=== PATIENT | female | born 1995 | race Caucasian/White ===

== ENCOUNTER → 2016-10-30 | Outpatient (CLI) | payer OTHER ==
[~2016-10-30] MED LIST: CALC500C3; PEDI1CHW82
[2016-10-30 18:54] LABS: URINE APPEARANCE CLEAR (CLEAR); URINE BILIRUBIN NEG (NEG); URINE COLOR YELLOW; URINE EPITHELIAL CELL AUTO >30 /lpf (0-5); URINE NITRITE NEG (NEG); URINE SPECIFIC GRAVITY 1.002 (1.000-1.030); UROBILINOGEN NEG (NEG)
[2016-10-30 18:59] LABS: MANUAL MICROSCOPIC REQUIRED? NO; REVIEW REQ? NO
== END | disposition home or self-care (01) ==
LOC: C.LABSPEC 17:53
PROVIDERS: ATTEND Obstetrics & Gynecology
DX: Z34.03 Encounter for supervision of normal first pregnancy, third trimester (principal)

== ENCOUNTER → 2016-10-30 | Outpatient (CLI) | payer OTHER ==
[2016-10-30 17:25] LABS: GTGD 50 Grams
== END | disposition home or self-care (01) ==
LOC: C.LAB1850 14:27
PROVIDERS: ATTEND Obstetrics & Gynecology
DX: Z34.03 Encounter for supervision of normal first pregnancy, third trimester (principal)

== ENCOUNTER → 2016-12-24 | Outpatient (CLI) | payer OTHER | END | disposition home or self-care (01) | LOC: C.LABSPEC 13:50 | PROVIDERS: ATTEND Obstetrics & Gynecology | DX: Z34.03 Encounter for supervision of normal first pregnancy, third trimester (principal) ==

== ENCOUNTER 2017-01-04 17:37 | Inpatient (IN) | payer OTHER ==
[~2017-01-04] VITALS: Ht 165.1 cm; Wt 83.2 kg
[2017-01-04] MEDS ORDERED: LACTATED RINGER'S 1000ML 1,000 ML IV SCH (18:11)
[2017-01-04] MEDS ORDERED: LACTATED RINGER'S 1000ML 1,000 ML IV PRN (18:11)
[2017-01-04] MEDS ORDERED: PATIENT'S ALLERGY INFO NEEDS ENTERED SCH (18:15)
[2017-01-04 18:32] LABS: HEMATOCRIT 33.9 % (37-47); MEAN CELL VOLUME 86.9 fL (80-100); MEAN CORPUSCULAR HEMOGLOBIN 28.5 pg (25-34); MEAN CORPUSCULAR HGB CONC 32.7 g/dl (32-36); MEAN PLATELET VOLUME 11.3 fL (7.4-10.4); PLATELET COUNT 188 K/uL (130-400); WHITE BLOOD COUNT 11.28 K/uL (4.8-10.8)
[2017-01-04] MEDS ORDERED: CALC500C3 (18:49)
[2017-01-04] MEDS ORDERED: PEDI1CHW82 (18:49)
[2017-01-04 18:54] VITALS: Ht 165.1 cm; Wt 83.2 kg
[2017-01-04] MEDS ORDERED: BUTORPHANOL TARTRATE 1 MG/ML VIAL IV ONE (20:30)
[2017-01-04] MEDS ORDERED: OXYTOCIN 30 UNITS/500ML NSS IV ONE (22:10)
[2017-01-04] MEDS ORDERED: LANOLIN OINT EXT PRN ×2 (22:45)
[2017-01-04] MEDS ORDERED: BENZOCAINE 20% AER SPR 82.5 GM CAN EXT PRN (22:45)
[2017-01-04] MEDS ORDERED: OXYTOCIN 30 UNITS/500ML NSS IV PRN (22:45)
[2017-01-04] MEDS ORDERED: ACETAMINOPHEN/CODEINE 300/30MG TAB PO PRN ×2 (22:45)
[2017-01-04] MEDS ORDERED: OXYCODONE/ACETAMINOPHEN 5-325 TAB PO PRN (22:45)
[2017-01-04] MEDS ORDERED: ACETAMINOPHEN 325 MG TAB PO PRN (22:45)
[2017-01-04] MEDS ORDERED: HYDROCORTISONE ACETATE 25 MG SUPP PR PRN (22:45)
[2017-01-04] MEDS ORDERED: SUPERCREAM 0.870 % 15GM JAR EXT PRN (22:45)
[2017-01-04] MEDS ORDERED: DIPHTHERIA/TETANUS/PERTUSSIS 0.5 ML SYR/VIAL IM. ONE (22:45)
--- NOTE | 2017-01-04 23:52 | DELIVERY SUMMARY ---
DATE OF OPERATION: 01/04/2017 PREOPERATIVE DIAGNOSES: 1. Intrauterine at 37-4/7 weeks. 2. Active labor. POSTOPERATIVE DIAGNOSES: Same. PROCEDURES: 1. Stadol IV anesthesia. 2. Normal spontaneous vaginal delivery. 3. Bilateral labial lacerations with repair. SURGEON: Dr. Valdes. ANESTHESIA: Stadol IV and local infiltration of lidocaine to the labia. ESTIMATED BLOOD LOSS: 350 mL. PROCEDURE: The patient to presents to labor and delivery in active labor. She was admitted and underwent spontaneous rupture of membranes for clear fluid. She progressed spontaneously to 7-8 cm dilated, she got one dose of 1 mg of IV Stadol. She then progressed to complete, complete and +2 station. She pushed effectively to deliver a viable male infant in CATHIE presentation. There was no nuchal cord. The nose and mouth were bulb suctioned and the rest of the infant was then delivered without difficulty. The nose and mouth were again bulb suctioned. The infant was placed on the maternal abdomen for drying and attention. The cord was clamped and cut. Cord blood and segment were obtained. Placenta was delivered spontaneously, intact with a 3-vessel cord. Cervix, sulci and rectum were examined as well as the perineum and found to be intact. Bilateral labial lacerations were repaired under local infiltration of lidocaine with several interrupted stitches of 4-0 Vicryl. Apgars 8 and 9. Mother and baby doing well at the end of the delivery. I attest to the content of the Intraoperative Record and any orders documented therein. Any exceptions are noted below. MALIA
[2017-01-05] VITALS (7 sets, daily range): BP systolic 106–132; BP diastolic 65–78; PULSE 70–78; TEMP 36.4–36.9; O2SAT 97–98
[2017-01-05] MEDS: IBUPROFEN 600 MG TAB PO PRN ×2 (00:05→13:36)
[2017-01-05 06:55] LABS: HEMATOCRIT 30.4 % (37-47)
[2017-01-05] MEDS: PRENATAL VITAMIN TAB PO SCH (07:56)
[2017-01-05] MEDS: DOCUSATE SODIUM 100 MG CAP PO SCH ×2 (07:56→19:32)
--- NOTE | 2017-01-05 08:36 | Progress Note ---
Subjective Jan 05, 2017. Subjective conversation w/ patient, physical exam Ambulation: ambulating normally Voiding: no voiding problems Passing Gas: Yes Diet Tolerance: Regular Diet Lochia: Moderate Feeding Type: Bottle Feeding Pain: denies pain Comment: Patient was seen at the bedside. No acute event overnight. Review of Systems Constitutional: No fever Respiratory: No cough, No shortness of breath Cardiac: No chest pain, No edema Breast: No breast lump Abdomen: No nausea, No pain, No vomiting Female : No dysuria Denies headache Objective Vital Signs Date Time Temp Pulse Resp B/P Pulse Ox O2 Delivery O2 Flow Rate FiO2 01/05/17 04:10 36.9 76 18 121/76 Room Air 01/05/17 00:15 36.4 78 18 132/78 Room Air 01/05/17 00:15 Room Air Physical Exam General Appearance: WELL-APPEARING, WD/WN Respiratory/Chest: chest non-tender, lungs clear, normal breath sounds Cardiovascular: regular rate, rhythm, no edema Abdomen: normal bowel sounds, non tender, soft Fundus: Firm, Relation to Umbilicus (2cm beloe) Extremities: non-tender, no pedal edema, no calf tenderness Laboratory Results Last 24 Hours Test 01/04/17 18:24 01/05/17 06:36 White Blood Count 11.28 K/uL Red Blood Count 3.90 M/uL Hemoglobin 11.1 g/dL 10.1 g/dL Hematocrit 33.9 % 30.4 % Mean Corpuscular Volume 86.9 fL Mean Corpuscular Hemoglobin 28.5 pg Mean Corpuscular Hemoglobin Concent 32.7 g/dl RDW Standard Deviation 44.7 fL RDW Coefficient of Variation 14.1 % Platelet Count 188 K/uL Mean Platelet Volume 11.3 fL Medications Current Inpatient Medications Medications (Trade) Dose Ordered Sig/Teresita Route Start Time Stop Time Status Last Admin Dose Admin Oxytocin (Pitocin IV) 30 units UD PRN IV 01/04/17 22:45 02/03/17 22:44 Benzocaine (Dermoplast Aero Spr) 1 appln PRN PRN EXT 01/04/17 22:45 02/03/17 22:44 01/05/17 00:05 1 APPLN Cocaine HCl (Supercream 0.870% Cr) BID PRN EXT 01/04/17 22:45 01/18/17 22:44 Hydrocortisone Acetate (Anusol Hc Supp) 25 mg BID PRN VT 01/04/17 22:45 02/03/17 22:44 Lanolin (Lanolin Oint) PRN PRN EXT 01/04/17 22:45 02/03/17 22:44 Prenat Multivit/ [place]/Iron/Folic Ac ( Vitamin Tab) 1 tab DAILY PO 01/05/17 08:00 02/04/17 07:59 Ibuprofen (Motrin Tab) 600 mg Q4H PRN PO 01/04/17 22:45 02/03/17 22:44 01/05/17 00:05 600 MG Acetaminophen (Tylenol Tab) 650 mg Q6H PRN PO 01/04/17 22:45 02/03/17 22:44 Acetaminophen/ Codeine Phosphate (Tylenol w/ Codeine #3 Tab) 1 tab Q4H PRN PO 01/04/17 22:45 02/03/17 22:44 Acetaminophen/ Codeine Phosphate (Tylenol w/ Codeine #3 Tab) 2 tab Q4H PRN PO 01/04/17 22:45 02/03/17 22:44 Docusate Sodium (coLACE CAP) 100 mg BID PO 01/05/17 08:00 02/04/17 07:59 01/05/17 07:56 100 MG Assessment and Plan Post- Day#: 1 Continue Routine Care: A/P: This is a 21 y/o female, , s/p normal vaginal delivery. She is ambulating and clinically stable. Plan: - Vitals signs are reviewed and WNL (Tmax 36.9 ) - Last Hgb is 10.1 - Blood type O+, GBS neg, Rubella Immune - Routine care - Encourage ambulation, monitor and control pain with medication as needed , continue with regular diet as tolerated and monitor lochia - Stool softeners and sitz bath recommended Resident Physician Supervision Note: I interviewed and examined the patient. Discussed with Dr. Weeks and agree with findings and plan as documented in the note. Any exceptions or clarifications are listed here: Doing well. Routine care. Documented By: Salud Valdes
--- NOTE | 2017-01-05 20:10 | Discharge Instructions ---
Discharge Instructions Date of Service Jan 05, 2017. Admission Reason for Admission: Check Labor, Decrease Movement Discharge Discharge Diagnosis / Problem: s/p vaginal delivery Discharge Goals Goal(s): Routine recovery after delivery Medications Continue Dispensed Medications: supercream, dermaplast, tucks, lansinoh Activity Recommendations Activity Limitations: per Instructions/Follow-up section . Instructions / Follow-Up Instructions / Follow-Up ACTIVITY RECOMMENDATIONS: * Gradual return to full activity over the next 2-3 weeks. * No lifting - nothing heavier than baby over the next 2-3 weeks. * Do not engage in vigorous exercise, sexual activity or sports until cleared by your physician. * Do not drive or operate any motorized equipment until cleared by your physician. * You may shower/bathe daily. MEDICATIONS: For discomfort or pain, you may use Acetaminophen (Tylenol), Ibuprofen (Advil), or Naproxen (Aleve) following the package directions. For constipation you may use Colace following the package directions. BREAST CARE: If you are not breast feeding: * Wear a supportive bra 24 hours a day for one to two weeks. * Avoid stimulating your breasts and nipples as much as possible during the first few weeks after delivery. * When taking a shower, have the warm water hit your back, not breasts. * When your breasts feel full, apply ice packs. Usually three to four times a day helps ease the discomfort. * Take a mild pain medication (Tylenol / Motrin) when you are uncomfortable. If breast feeding: * Use breast milk to lubricate nipples. Lansinoh cream may be used for sore nipples. You do not need to remove cream prior to breast feeding. If using a different brand of cream, check the label for directions regarding removal of cream prior to nursing. * Wear a supportive bra. * If having problems with breasts or breast feeding, call a water resource consultant or your health care provider. EPISIOTOMY CARE: After delivery, if you have an episiotomy (stitches), the following steps will ease discomfort and aid healing. * For the first 24 hours after delivery, place ice packs next to your episiotomy to help reduce swelling. * After the first 24 hour-period, sitz baths, either portable or in the tub, are suggested. A shower with a shower arm sprayed over the episiotomy may be comforting. * Sugar care should be done after each voiding and bowel movement. Squirt warm water from a plastic bottle over the perineum (region of the body between the anus and urinary opening) and pat dry. * Use Dermoplast to ease discomfort. Shake container. [place] directly over the episiotomy. Place a Tucks on a clean sanitary pad next to your episiotomy. SPECIAL CARE INSTRUCTIONS: When you are discharged from the hospital, it is important for you to follow the instructions listed below: * During the first week at home, you should be able to care for yourself and your baby. In addition, the usual light household activities are encouraged. * Limit your activities to the way you feel. Do not try to clean the house or move furniture. Be sensible. * If you actively engage in sports and have done so up until the time of your delivery, you may resume these activities as soon as you feel able. This may take up to one month or even longer. Use good judgment. * Continue to take your vitamins for at least six weeks after the of your baby. * Your diet need not be limited unless you were on a special diet before your delivery. Breast-feeding mothers need around 2500 calories per day and at least 64-80 ounces of fluid per day (8 to 10 glasses). * You should eat foods from the four major food groups. Crash diets or fad diets are to be avoided. Eating lean meats, fresh fruits and vegetables, low-fat dairy products, high fiber foods and a regular exercise program, will help you get back to your pre- weight without putting your health at risk. * Constipation is sometimes a problem after delivery. Take a mild laxative as needed. If breast feeding, Milk of Magnesia is acceptable to use. You may use a suppository or Fleets enema if no episiotomy. * A daily shower or tub bath is suggested. Be sure to thoroughly and gently dry the perineum. * A bloody vaginal discharge will usually continue until around four weeks post . A small amount of bleeding may continue for as long as six weeks. Vaginal discharge changes from the bright red bleeding after delivery to pink then brownish and finally yellowish-pink before becoming white and disappearing. * Bleeding may increase with activity. Your first period may come in 4-8 weeks. If you are breast feeding, your period may be delayed even longer. * Meservey (sex) can begin whenever both you and your partner feel comfortable and do not have any form of genital infection. It is recommended that you wait at least six weeks for internal and external healing to occur. If you have questions, please talk to your health care practitioner. A condom should be used to prevent infection and . * Foreplay, gentle intercourse and lubrication is very important the first several times to prevent pain. A water-based lubricant such as K-Y jelly or Astroglide may be used. * If you have RH negative blood and your baby is RH positive, you will receive RHOGAM by injection prior to discharge. The nurse will give you a card to keep with you that has the date and place that you received RHOGAM after delivery. * During your care, you had a Rubella screen done to check for the presence of rubella antibodies in your blood. If your test was negative, you will receive a Rubella vaccine prior to discharge. This vaccine may cause a fever, soreness at the injection site and flu-like symptoms. If these symptoms persist, notify your health care practitioner. is not advised for one month after a Rubella vaccine. * Verbalizes understanding of car seat law as reviewed with patient nursing. * Car Seat hand-out given and reviewed with patient by nursing. * Shaken baby information reviewed with patient by nursing. Call you doctor if: * Heavy bleeding (saturating several pads an hour) or passing clots the size of your fist. * A fever >101 degrees F (38.3 degrees C) on two occasions four hours apart and /or chills. * Unusual pain in the pelvic or vaginal areas. * "Baby Blues" lasting longer than two weeks. If you have any questions or concerns, call your health care practitioner at . FOLLOW UP VISIT: * Please call the office at to schedule a 6 week examination. It is important you keep this appointment. It is important for you to make arrangements for either yearly or twice yearly check-ups thereafter. Current Hospital Diet Patient's current hospital diet: Regular OB Diet Discharge Diet Recommended Diet: Regular Diet Pending Studies Studies pending at discharge: no Medical Emergencies . Who to Call and When: Medical Emergencies: If at any time you feel your situation is an emergency, please call 911 immediately. . Non-Emergent Contact Non-Emergency issues call your: Regulator Assembler . . "Provider Documentation" section prepared by Salud Valdes. . VTE Core Measure Inpt VTE Proph given/why not?: Treatment not indicated
[2017-01-06 07:20] VITALS: BP 109/71; PULSE 69; TEMP 36.7
--- NOTE | 2017-01-06 07:57 | Progress Note ---
Subjective Jan 06, 2017. Subjective conversation w/ patient, physical exam, lab review Ambulation: ambulating normally Voiding: no voiding problems Passing Gas: Yes Diet Tolerance: Regular Diet Lochia: Small Feeding Type: Breast Feeding Pain: controlled with oral pain meds Objective Vital Signs Date Time Temp Pulse Resp B/P Pulse Ox O2 Delivery O2 Flow Rate FiO2 01/05/17 23:30 Room Air 01/05/17 23:30 36.7 74 18 107/65 Room Air 01/05/17 19:35 36.4 70 18 108/72 Room Air 01/05/17 17:05 36.6 73 18 114/75 98 Room Air 01/05/17 17:05 98 Room Air 01/05/17 11:35 36.8 76 18 106/68 Room Air Physical Exam General Appearance: WELL-APPEARING, WD/WN, NO APPARENT DISTRESS Respiratory/Chest: lungs clear, normal breath sounds Cardiovascular: regular rate, rhythm Abdomen: normal bowel sounds, non tender, soft Fundus: Firm, Non-Tender, Relation to Umbilicus (1 below u) Extremities: non-tender, normal inspection Assessment and Plan Post- Day#: 2 Continue Routine Care: Doing well. Plan d/c. Instructions given.
[2017-01-06] MEDS: PRENATAL VITAMIN TAB PO SCH (08:00)
[2017-01-06] MEDS: DOCUSATE SODIUM 100 MG CAP PO SCH (08:39)
[2017-01-06 11:30] VITALS: BP_DIAS 71; PULSE 69; TEMP 36.7
== END 2017-01-06 12:09 | disposition home or self-care (01) | DRG 775 ==
LOC: C.OPB 17:37 → C.LD 17:37 → C.OPB 18:13 → C.LD 18:13 → C.OBG 01-05 00:03
PROVIDERS: ADMIT Obstetrics & Gynecology; ATTEND Obstetrics & Gynecology
PROC: 0UQMXZZ Repair Vulva, External Approach (ICD-10-PCS; principal; 2017-01-04)
PROC: 10E0XZZ Delivery of Products of Conception, External Approach (ICD-10-PCS; principal; 2017-01-04)
DX: O70.0 First degree perineal laceration during delivery (principal); Z37.0 Single live birth; Z3A.37 37 weeks gestation of pregnancy

== ENCOUNTER 2022-04-24 06:45 | Inpatient (IN) ==
[2022-04-24] MEDS ORDERED: LACTATED RINGER'S 1,000 ML IV PRN (07:13)
[2022-04-24] MEDS ORDERED: OXYTOCIN 30 UNITS/500 ML BAG IV PRN ×2 (07:13→09:16)
--- NOTE | 2022-04-24 07:58 | History & Physical Report ---
Date of Service April 24, 2022 Assessment & Plan (1) Encounter for supervision of normal in multigravida, antepartum: Plan: 26 y/o presents in active labor VSS Fetus cat 1 Labor - will AROM as pt does not want epidural, too far along for stadol GBS neg Admission and Anticipated Discharge Date Admission Date: April 24, 2022 History of Present Illness Chief Complaint: Labor Primary Care Provider: NO PCP 26 y/o at 40 1/7 wga presents in labor. Contractions started at 5AM. +FM; denies LOF, VB PNI: Scoliosis G1 at 37 wks 2017 G2 current Allergies Allergy/AdvReac Type Severity Reaction Status Date / Time No Known Allergies Allergy Verified 04/23/22 10:38 Home Medications Medication Instructions Recorded Confirmed Type prenat.vits,syeda,kyh-ghbt-uvfrq 1 tab PO DAILY 09/07/21 04/23/22 History Patient History Medical History Migraines with 37 or more completed weeks gestation Scoliosis Idiopathic s/p scoliosis correction surgery (2008)- left lateral fusion hardware placed T11-L3, Left trans-abdominal excision 09/13/09 x-ray shows dusion with satisfactory alignment (report scanned into old MT) Vaginal delivery Stadol IV and local infiltration of lidocaine to the labia per 12/2016 [facility] records Surgical History H/O Spinal surgery Left lateral fusion hardware placed T11-L3, Left trans-abdominal excision (2008) [place] teeth extracted Family History Mother Anemia Endometriosis Ovarian cyst Thyroid disease Denies family history of Ovarian cancer Diabetes Breast cancer Lung cancer Colorectal cancer Hypertension Social History Smoking Status: Never smoker Hx Alcohol Use: No Hx Substance Use: No Communication Ability: Effective marital status: marital status details: Chace Cruz (42) [phone] Current Living Situation: Spouse and Family Current Living Situation Comment: , child, 2 step children. 1 cat ( changed litter) current occupational status: unemployed current occupation: Stay at home mom Physical Exam Genitourinary: OB Exam Monitor Tracing: + external FHT monitor used, + external uterine monitor used (q3) and + category I (135/mod/-accel/-decel) SVE 7cm by RN Results & Data ([facility]) Vital Signs (Past 12 Hours) Vital Signs Pulse BP 04/24/22 07:47 85 134/73 04/24/22 07:27 86 128/76 Coding Level of Care Code None Diagnoses Encounter for supervision of normal in multigravida, antepartum Z34.80
--- NOTE | 2022-04-24 08:09 | Delivery Summary ---
Vaginal Delivery Summary Date of Service April 24, 2022 Vaginal Delivery Summary [facility] PREOPERATIVE DIAGNOSIS: 1. Single intrauterine at 40 1/7 wga 2. Labor POSTOPERATIVE DIAGNOSIS: 1. Single intrauterine at 40 1/7 wga 2. Labor 3. Delivered PROCEDURE: 1. Normal spontaneous vaginal delivery. SURGEON: Anne Landin MD ANESTHESIA: Epidural. ESTIMATED BLOOD LOSS: 300 mL FLUIDS: Continuous LR. URINE OUTPUT: None. COMPLICATIONS: None. CONDITION: Stable. INDICATIONS: 26 y/o at 40 1/7 wga presented in labor. On arrival was 7cm. She then had SROM and progressed to complete and desired to push. FINDINGS: A viable male , weight pending with Apgars of 7 and 9 at 1 and 5 minutes respectively. SPECIMEN: Cord blood OPERATIVE REPORT: The patient progressed to 10 cm, 100% effaced and +2 station, pushed over intact perineum with anesthesia to deliver a viable male infant, weight and Apgars as above. Head of delivered in CATHIE position. Loose nuchal cord was noted and reduced. Body and shoulders were delivered without difficulty. was delivered to maternal abdomen and nursing staff. Delayed cord clamping was performed for 60 seconds. Cord was clamped and cut. Cord blood was obtained. Placenta delivered spontaneously intact with 3-vessel cord. IV oxytocin and fundal massage were given for excellent hemostasis. Vagina, cervix, perineum, and placenta were inspected. Hemostatic abrasions were noted on labia but not needed to be repaired. Sponge and needle counts correct x2. No sponges were left behind. Mother and stable in immediate period. [facility] Vaginal Delivery Charge Vaginal Delivery Codes: 80531 global code for the antepartum, delivery, and post- Delivery Type Details: [facility]
[2022-04-24 09:03] LABS: Hematocrit (blood only) 33.7 % (34.1-44.9); Hemoglobin 10.9 g/dl (12.0-16.0); Mean Corpuscular Hemoglobin 27.7 pg (25.0-34.0); Mean Corpuscular Hgb Conc 32.3 g/dL (32.0-36.0); Mean Corpuscular Volume 85.5 fL (80.0-100.0); Mean Platelet Volume 11.9 fL (9.4-12.3); Platelet Count 176 K/uL (130-400); RDW Coefficient of Variation 15.3 % (11.5-14.5); RDW Standard Deviation 48.4 fL (36.4-46.3); Red Blood Count 3.94 M/uL (3.93-5.22)
[2022-04-24] MEDS ORDERED: BENZOCAINE 20% AER SPR 82.5 GM CAN EXT PRN (09:16)
[2022-04-24] MEDS ORDERED: FERROUS SULFATE 325 MG TAB PO SCH (09:16)
[2022-04-24] MEDS ORDERED: HYDROCORTISONE ACETATE 25 MG SUPP PR PRN (09:16)
[2022-04-24] MEDS ORDERED: DIPHTHERIA/TETANUS/PERTUSSIS 0.5 ML SYR/VIAL IM ONE (09:16)
[2022-04-24] MEDS ORDERED: bisacodyL 10 MG SUPP PR PRN (09:16)
[2022-04-24] MEDS ORDERED: PRENATAL VITAMIN 1 TAB PO SCH (09:16)
[2022-04-24] MEDS ORDERED: ACETAMINOPHEN 325 MG TAB PO PRN (09:16)
[2022-04-24] MEDS: IBUPROFEN 600 MG TAB PO PRN ×2 (14:18→20:54)
[2022-04-24] MEDS: DOCUSATE SODIUM 100 MG CAP PO SCH (20:55)
[2022-04-25] MEDS: IBUPROFEN 600 MG TAB PO PRN ×2 (00:03→08:04)
--- NOTE | 2022-04-25 07:35 | Obstetrical Progress Note ---
Date of Service <Adrienne Huerta DO - Last Filed: 04/25/22 07:35> April 25, 2022 Assessment & Plan <Adrienne Huerta DO - Last Filed: 04/25/22 07:35> (1) Encounter for supervision of normal in multigravida, antepartum: Plan s/p PPD 1 -O+, GBS-, rubella immune -Hemoglobin reviewed, 10.9 (8/9) -Encourage ambulation, continue regular diet, monitor lochia -encourage -discussed discharge instructions with patient <Monika Zimmerman MD - Last Filed: 04/25/22 07:43> (1) Encounter for supervision of normal in multigravida, antepartum: Subjective <Adrienne Huerta DO - Last Filed: 04/25/22 07:35> Gretta is a 26 y/o female who is PPD #1 following at 40 1/7 weeks. She reports feeling well overall this morning. Denies any current abdominal cramping, pain well managed on analgesics. Voiding without issue. Tolerating meals overnight and able to ambulate some. Has been passing gas but no bowel movement. Has persistent lochia with some improvement this morning. Currently breast feeding. Constitutional: no fever, no chills or no sweats Respiratory: no cough, no dyspnea or no wheezing Cardiovascular: no chest pain, no palpitations or no calf pain Breast: no breast pain Genitourinary (female): no dysuria Neurologic: no headache(s) Physical Exam <Adrienne Huerta DO - Last Filed: 04/25/22 07:35> Constitutional WD/WN, vitals as above no acute distress Respiratory no respiratory distress Auscultation: lungs clear to auscultation bilaterally; no rales, no rhonchi and no wheezes Cardiovascular RRR, no murmur, no edema Extremities: no calf tenderness and no edema Negative Jessica's sign bilaterally. Gastrointestinal (Abdomen) Inspection/Auscultation: normal bowel sounds Genitourinary Uterine fundus firm, palpable below the umbilicus. Results & Data ([facility]) <Adrienne Huerta DO - Last Filed: 04/25/22 07:35> Vital Signs (Past 12 Hours) Vital Signs Temp Pulse Pulse Resp BP Pulse Ox O2 Del Method 04/25/22 03:12 36.8 C 70 18 109/71 98 Room Air 04/24/22 23:40 36.7 C 62 18 115/71 97 Room Air 04/24/22 22:58 37 C 80 16 106/65 95 Room Air 04/24/22 19:50 37 C 77 77 18 105/70 98 Room Air <Monika Zimmerman MD - Last Filed: 04/25/22 07:43> Co-Signing Physician Notes Resident Physician Supervision Note: I interviewed and examined the patient. Discussed with Dr. Huerta and agree with findings and plan as documented in the note. Any exceptions or clarifications are listed here: [ ] Documented By: Monika Zimmerman MD, FACOG Resident Activity Tracking <Adrienne Huerta DO - Last Filed: 04/25/22 07:35> Resident Involvement: Resident Care Provided Care Provided: OB Delivery
[2022-04-25] MEDS: DOCUSATE SODIUM 100 MG CAP PO SCH (08:06)
[2022-04-25] MEDS ORDERED: bisacodyL 5 MG TABEC PO SCH (20:00)
== END 2022-04-25 11:45 | disposition home or self-care (01) | DRG 807 ==
LOC: 4S1 06:45 → 4E1 10:20
DX: Z79.899 Other long term (current) drug therapy; O69.81X0 Labor and delivery complicated by cord around neck, without compression, not applicable or unspecified; Z3A.40 40 weeks gestation of pregnancy; Z37.0 Single live birth